=== PATIENT | male | born 1995 | race Caucasian/White ===

== ENCOUNTER 2016-08-03 18:32 | Emergency (ER) | payer OTHER ==
[~2016-08-03] VITALS: Ht 180.3 cm; Wt 95.4 kg
[2016-08-03 18:39] VITALS: Ht 180.3 cm; Wt 95.4 kg
[2016-08-03] MEDS ORDERED: DIPHTH/TET/ACEL PERTUSS (ADULT) 0.5 ML VIAL IM* ONE (20:00)
--- NOTE | 2016-08-03 20:06 | ERD ---
ER Documentation Chief Complaint Date/Time DATE: 08/03/16 TIME: 20:03 Chief Complaint LT HAND LAC FROM SQUEEZING BEER BOTTLE UNSURE TETANUS VACCINE HPI 20-year-old male presents here in emergency department for complaints of left hand laceration wound after squeezing a beer bottle today. Patient accordingly laceration wound, it was bleeding, patient is able to move the joint of the left hand without any restriction. Patient is complaining of pain on affected area, burning pain, 4/10 scale, is worse upon touching the area. Patient did not take any medications to help with symptoms. Patient denies any deformity. Patient denies any numbness or tingling. ROS All systems reviewed and are negative except as per history of present illness. Medications Home Meds Reported Medications [none] Unknown Strength No Conflict Check 08/03/16 Allergies Allergies: Coded Allergies: No Known Allergy (Unverified , 08/03/16) PMhx/Soc Medical and Surgical Hx: pt denies Medical Hx, pt denies Surgical Hx Hx Alcohol Use: Yes Hx Substance Use: No Hx Tobacco Use: No Smoking Status: Never smoker FmHx Family History: No coronary disease, No diabetes, No other Physical Exam Vitals Vital Signs Date Time Temp Pulse Resp B/P Pulse Ox O2 Delivery O2 Flow Rate FiO2 08/03/16 18:39 98.0 87 16 129/71 96 Physical Exam GENERAL: The patient is well developed and appropriate for usual state of health, in no apparent distress. CHEST: Clear to auscultation bilaterally. There are no rales, wheezes or rhonchi. HEART: Regular rate and rhythm. No murmurs, clicks, rubs or gallops. No S3 or S4. ABDOMEN: Soft, nontender and nondistended. Good bowel sounds. No rebound or guarding. No gross peritonitis. No gross organomegaly or masses. No Rondon sign or McBurney point tenderness. BACK: No midline or flank tenderness. EXTREMITIES: Patient was able to do full range of motion of the joints of the left hand without any restriction. Equal pulses bilaterally. There is no peripheral clubbing, cyanosis or edema. No focal swelling or erythema. Full range of motion. Grossly neurovascularly intact. NEURO: Alert and oriented. Cranial nerves 2-12 intact. Motor strength in all 4 extremities with 5/5 strength. Sensation grossly intact. Normal speech and gait. SKIN: Noted 3 cm laceration wound on the webspace of the left thumb finger and the left second finger, does not involve the tendon, extends up to the subcutaneous layer. There is no apparent rash or petechia. The skin is warm and dry. HEMATOLOGIC AND LYMPHATIC: There is no evidence of excessive bruising or lymphedema. No gross cervical, axillary, or inguinal lymphadenopathy. Results 24 hrs Current Medications Medications (Trade) Dose Ordered Sig/Keily Route PRN Reason Start Time Stop Time Status Last Admin Dose Admin Diphtheria/ Tetanus/Acell Pertussis (Adacel) 0.5 ml ONCE ONCE IM* 08/03/16 20:00 08/03/16 20:01 DC 08/03/16 20:27 Lidocaine (Xylocaine 1% (Mdv) 20 ml) 2 ml ONCE ONCE SC 08/03/16 22:30 08/03/16 22:31 DC Acetaminophen/ Hydrocodone Bitart ([place] (10/325)) 1 tab ONCE ONCE PO 08/04/16 01:00 08/04/16 01:01 DC Tdap was given to prevent tetanus. Patient tolerated medication well.Patient was given medication for pain here in emergency department, after treatment, patient verbalized feeling much better. Patient's pain is improved. AMENDMENT: 08/03/2016 10:33:48 PM Tyrone Wall MD ADDENDUM: Four additional imaging now available. Previously described linear density in the soft tissues between the distal aspect of the second. Metacarpals is not visible with prior studies. A density overlying the distal aspect second and third distal metacarpals likely represents overlying gauze/bandages. There is no definite suspicious for a radiopaque foreign body or fracture. PROCEDURE: XR Hand. CLINICAL INDICATION: Trauma. Possible foreign body. TECHNIQUE: Single AP view of the right hand was obtained. COMPARISON: No prior studies are available for comparison. FINDINGS: There is soft tissue defect between the first and second digits. There is a ill -defined hyperdensity overlying the distal aspect of the second metacarpal with a 7.3 x 0.6 mm linear density between the distal diaphysis of the second and third metacarpals. No fracture is identified. Joint relationships are maintained. Bone mineralization is within normal limits. IMPRESSION: Soft tissue irregular expanded first second distal metacarpals consistent with laceration. Ill-defined hyperdensity overlying the distal aspect second of the carpal. Linear density between the distal diaphysis of the second and third metacarpals suspicious for radiopaque foreign body. RPTAT: HMVK .Tyrone Wall MD, Date Time Electronically viewed and signed by .Tyrone Wall MD, MD on 08/03/2016 22:33 .K/ CC: GON[employer]ALEZ BOO [employer] PROCEDURE: Left hand. CLINICAL INDICATION: Pain. TECHNIQUE: Three views including PA, lateral and oblique views of the left hand were obtained. COMPARISON: 08/03/2016. FINDINGS: There is no fracture, dislocation or bone destruction. The joint spaces are within normal limits. Bone mineralization is within normal limits. There is no radiopaque foreign body or abnormal calcification. IMPRESSION: Radiopaque foreign body no longer identified. .Lane Portillo MD, MD Date Time Electronically viewed and signed by .Lane Portillo MD, MD on 08/04/2016 00:56 .T/ CC: [employer] Procedures/MDM Procedure Note: After obtaining informed consent, the wound was irrigated with 250 ml of normal saline and cleaned with diluted betadine. Using aseptic technique, 3 ml of 1% lidocaine was injected on the subcutaneous tissue of the laceration wound for anesthetic. After the anesthetic, the wound was approximated using 6 interrupted sutures of 3-0 Prolene. After the procedure, the wound was well approximated. Patient tolerated procedure well. Bacitracin was applied on the area and a dry dressing. Medical Decision Making: Patient's pain is most likely consistent with a laceration of affected area, no noted foreign body. No tendon involvement. Patient is able to move joint without any difficulty. There is no suspicion for neurovascular compromise. Patient has intact sensation and circulation of the affected extremity. There is low suspicion for septic arthritis. Patient does not have any fever. Radiology exams of the affected area does not show any fracture or dislocation. Disposition: Home. Patient is given prescription for ibuprofen for pain, Keflex to prevent infection. Patient was advised to elevate the affected area and apply ice on affected area. Patient was advised that if symptoms are worse, numbness, tingling, high fever, unable to move joint, worsening symptoms, to return to emergency department immediately. Otherwise, patient is advised to follow up with the primary care doctor wound check in 2 days, suture removal in 7-10 days Departure Diagnosis: Primary Impression: Hand laceration Encounter type: initial encounter Laterality: left Qualified Code: S61.412A - Hand laceration, left, initial encounter Condition: Stable Patient Instructions: Laceration, Hand Additional Instructions: Patient is given prescription for ibuprofen for pain, Keflex to prevent infection. Patient was advised to elevate the affected area and apply ice on affected area. Patient was advised that if symptoms are worse, numbness, tingling, high fever, unable to move joint, worsening symptoms, to return to emergency department immediately. Otherwise, patient is advised to follow up with the primary care doctor wound check in 2 days, suture removal in 7-10 days GONZALEZ BOO NP Aug 03, 2016 20:05
--- NOTE | 2016-08-03 22:01 | RADRPT ---
AMENDMENT: 08/03/2016 10:33:48 PM Tyrone Wall MD ADDENDUM: Four additional imaging now available. Previously described linear density in the soft tissues betw een the distal aspect of the second. Metacarpals is not visible with prior studies. A density over lying the distal aspect second and third distal metacarpals likely represents overlying gauze/bandag es. There is no definite suspicious for a radiopaque foreign body or fracture. PROCEDURE: XR Hand. CLINICAL INDICATION: Trauma. Possible foreign body. TECHNIQUE: Single AP view of the right hand was obtained. COMPARISON: No prior studies are available for comparison. FINDINGS: There is soft tissue defect between the first and second digits. There is a ill-defined hyperdensit y overlying the distal aspect of the second metacarpal with a 7.3 x 0.6 mm linear density between th e distal diaphysis of the second and third metacarpals. No fracture is identified. Joint relationsh ips are maintained. Bone mineralization is within normal limits. IMPRESSION: Soft tissue irregular expanded first second distal metacarpals consistent with laceration. Ill-defi shonda hyperdensity overlying the distal aspect second of the carpal. Linear density between the dista l diaphysis of the second and third metacarpals suspicious for radiopaque foreign body. RPTAT: HMVK .Tyrone Wall MD, Date Time Electronically viewed and signed by .Tyrone Wall MD, on 08/03/2016 22:33 .K/
[2016-08-03] MEDS ORDERED: LIDOCAINE 1% (MDV) 20 ML INJ SC ONE (22:30)
--- NOTE | 2016-08-04 00:57 | RADRPT ---
PROCEDURE: Left hand. CLINICAL INDICATION: Pain. TECHNIQUE: Three views including PA, lateral and oblique views of the left hand were obtained. COMPARISON: 08/03/2016. FINDINGS: There is no fracture, dislocation or bone destruction. The joint spaces are within normal limits. Bone mineralization is within normal limits. There is no radiopaque foreign body or abnormal calcif ication. IMPRESSION: Radiopaque foreign body no longer identified. .Lane Portillo MD, MD Date Time Electronically viewed and signed by .Lane Portillo MD, on 08/04/2016 00:56 .T/
[2016-08-04] MEDS ORDERED: HYDROCODONE/APAP (10/325) TAB PO ONE (01:00)
[2016-08-04] MEDS ORDERED: CEPH-443 PO (01:18)
[2016-08-04] MEDS ORDERED: IBUP-1542 PO (01:18)
[2016-08-04] MEDS ORDERED: HYDR-906 PO (01:18)
[2016-08-04 01:33] VITALS: BP 116/75; PULSE 78; RESP 16; TEMP 98.4
== END 2016-08-04 01:34 | disposition home or self-care (01) ==
LOC: FTE 18:32
DX: S61.412A Laceration without foreign body of left hand, initial encounter (principal); W26.8XXA Contact with other sharp object(s), not elsewhere classified, initial encounter; Y92.9 Unspecified place or not applicable; Z23 Encounter for immunization
CPT/HCPCS: 12002; 73130; 90471; 90715; Z7502; Z7610